=== PATIENT | female | born 1955 | race Caucasian/White ===

== ENCOUNTER → 2017-09-19 | Outpatient (CLI) | payer MEDICARE ==
--- NOTE | 2017-09-19 10:43 | RADIOLOGY REPORT (SQ) ---
EXAM DESCRIPTION: UGI SERIES COMPLETED DATE/TIME: 09/19/2017 9:22 am REASON FOR STUDY: DIAPHRAGMATIC HERNIA WITHOUT OBSTRUCTION OR GANGRENE (K44.9) K44.9 DIAPHRAGMATIC HERNIA WITHOUT OBSTRUCTION OR GANGRENE COMPARISON: None. TECHNIQUE: Under fluoroscopic guidance, patient ingested effervescent granules followed by thick and thin barium. Fluoroscopic spot images and routine radiographic images acquired and stored on PACS. 12 MM BARIUM TABLET GIVEN: Yes. No significant delay in passage. LIMITATIONS: None. FLUOROSCOPY TIME: FLUORO TIME: 3.9 minutes 45 series of digital images saved to PACS. FINDINGS: NEUROMUSCULAR COORDINATION OF SWALLOW: Normal. No aspiration. ESOPHAGEAL MOTILITY: Tertiary contractions of the esophagus. Limited primary stripping wave. ESOPHAGEAL MUCOSA: Normal mucosa without masses or ulceration. GASTRO-ESOPHAGEAL JUNCTION: There is a large retrocardiac hiatal hernia containing the stomach body a nd fundus. There is a unprovoked gastroesophageal reflux to the midesophagus. No distal esophageal Schatzki's ring. However there is mild circumferential distal esophageal narrowing from smooth pepti c stricture. This did not impede passage of the 12 mm barium tablet STOMACH: Large retrocardiac hiatal hernia containing the stomach fundus and body. Prompt emptying of the stomach above the hemidiaphragm into the stomach below the hemidiaphragm. No gross mucosal lesi ons. Normal emptying through the pylorus GASTRIC OUTLET: No delay in emptying. Normal pylorus. DUODENAL BULB: Normal distention. No spasm or ulceration. DUODENUM: Mucosa normal. No extrinsic masses or malrotation. Small diverticulum 3rd portion of the duodenum PROXIMAL SMALL BOWEL: Mucosa normal. No extrinsic masses or malrotation. NON-GI TRACT STRUCTURES: No significant finding. OTHER: No other significant finding. IMPRESSION: Large retrocardiac hiatal hernia containing the stomach fundus and body. Mild distal esophageal peptic stricture without mucosal irregularity COMMENT: Quality ID [id number]: Final reports for procedures using fluoroscopy that document radiation exp osure indices, or exposure time and number of fluorographic images (if radiation exposure indices are not available) TECHNICAL DOCUMENTATION: JOB ID: [id number] [employer]- All Rights Reserved
== END ==
LOC: RAD 08:22
PROVIDERS: ATTEND Surgery
DX: K44.9 Diaphragmatic hernia without obstruction or gangrene (principal)
CPT/HCPCS: 74247